=== PATIENT | male | born 1960 | race Caucasian/White ===

== ENCOUNTER → 2022-09-10 | Outpatient (REF) | payer MEDICAID, SELFPAY ==
[2022-09-10 08:48] LABS: Hemoglobin 12.1 g/dL (13.0-16.5); Mean Corpuscular Hgb 26.4 pg (27.0-32.0); Mean Platelet Vol. 12.2 fl (6.2-12.0); Platelet Count 310 K/mm3 (150-450); RBC Distribution Width CV 15.4 % (11.6-14.6); RBC Distribution Width SD 47.6 fl (35.1-43.9); Red Blood Count 4.59 M/mm3 (4.6-6.2); White Blood Count 5.1 K/mm3 (4.4-11.0)
[2022-09-10 09:04] LABS: ALB/GLOB Ratio 0.8 RATIO (0.9-2.4); AST(SGOT) 9 U/L (15-37); Alanine Aminotransfer ALT/SGPT 8 U/L (16-61); Albumin, Serum 2.7 g/dL (3.2-5.0); Alkaline Phosphatase 77 U/L (45-117); Anion Gap 4 (5-15); BUN 18 mg/dL (7-18); BUN/Creat Ratio 22.8 RATIO (10-20); Calcium,Total 8.7 mg/dL (8.5-10.1); Chloride 102 mmol/L (98-107); Creatinine, Serum 0.79 mg/dL (0.70-1.30); EST Glomerular Filtration Rate 105 mL/min (>60); Est Glom Filt Rate - Afr Amer 127 mL/min (>60); Globulin 3.4 g/dL (2.2-4.2); Glucose 89 mg/dL (74-106); Potassium 4.5 mmol/L (3.5-5.1); Protein, Total 6.1 g/dL (6.4-8.2); Sodium Level 135 mmol/L (136-145); Thyroid Stim Hormone (TSH) 4.56 uIU/mL (0.358-3.74)
== END | disposition home or self-care (01) ==
LOC: OLS.SANC 07:00
PROVIDERS: Visit Provider Internal Medicine
DX: R62.7 Adult failure to thrive (principal); E43 Unspecified severe protein-calorie malnutrition
CPT/HCPCS: 36415; 80053; 84443; 85027

== ENCOUNTER → 2022-10-22 | Outpatient (REF) | payer MEDICAID, SELFPAY ==
[2022-10-22 08:44] LABS: Hematocrit 37.9 % (40-54); Hemoglobin 11.9 g/dL (13.0-16.5); Mean Corp Hgb Conc 31.4 g/dL (32-36); Mean Corpuscular Hgb 25.2 pg (27.0-32.0); Mean Corpuscular Volume 80.3 fL (80-94); Mean Platelet Vol. 12.4 fl (6.2-12.0); Platelet Count 248 K/mm3 (150-450); RBC Distribution Width SD 46.7 fl (35.1-43.9); Red Blood Count 4.72 M/mm3 (4.6-6.2); White Blood Count 6.2 K/mm3 (4.4-11.0)
[2022-10-22 09:11] LABS: Anion Gap 6 (5-15); BUN 13 mg/dL (7-18); Calcium,Total 8.8 mg/dL (8.5-10.1); Chloride 100 mmol/L (98-107); Creatinine, Serum 0.82 mg/dL (0.70-1.30); EST Glomerular Filtration Rate 101 mL/min (>60); Est Glom Filt Rate - Afr Amer 122 mL/min (>60); Glucose 107 mg/dL (74-106); Potassium 3.9 mmol/L (3.5-5.1); Sodium Level 133 mmol/L (136-145); Thyroid Stim Hormone (TSH) 2.58 uIU/mL (0.358-3.74)
== END | disposition home or self-care (01) ==
LOC: OLS.SANC 05:00
PROVIDERS: Visit Provider Internal Medicine
DX: I48.91 Unspecified atrial fibrillation (principal); J44.9 Chronic obstructive pulmonary disease, unspecified; E78.5 Hyperlipidemia, unspecified
CPT/HCPCS: 36415; 80048; 84443; 85027